=== PATIENT | male | born 1960 | race African-American/Black ===

== ENCOUNTER 2019-05-01 11:45 | Inpatient (IN) | payer OTHER ==
[2019-05-01 14:15] VITALS: BMI 24.1
--- NOTE | 2019-05-01 15:25 | HP ---
Addendum entered and electronically signed by Jyoti Kwan, RESIDENT 05/01/19 15: 47: Correction: eyes injected and mild icterus on physical exam. Original Note: CIWA Score Nausea/Vomitin-Int. Nausea w/Dry Heave Muscle Tremors: 1-None Visible, but Ava Anxiety: 3 Agitation: 1-Slight > Activity Paroxysmal Sweats: 2 Orientation: 0-Oriented Tacttile Disturbances: 0-None Auditory Disturbances: 0-None Visual Disturbances: 0-None Headache: 2-Mild CIWA-Ar Total Score: 13 - Admission Criteria [facility] Guidelines: Admission for Medically Managed Detox: Requires at least one of the followin. CIWA greater than 12 2. Seizures within the past 24 hours 3. Delirium tremens within the past 24 hours 4. Hallucinations within the past 24 hours 5. Acute intervention needed for co occurring medical disorder 6. Acute intervention needed for co occurring psychiatric disorder 7. Severe withdrawal that cannot be handled at a lower level of care (continued vomiting, continued diarrhea, abnormal vital signs) requiring intravenous medication and/or fluids 8. Admission ROS [facility] Allergies/Adverse Reactions: Allergies Allergy/AdvReac Type Severity Reaction Status Date / Time acetaminophen Allergy Mild Hives Verified 05/01/19 14:06 [From Darvocet-N] propoxyphene Allergy Mild Hives Verified 05/01/19 14:06 [From Darvocet-N] History of Present Illness: Patient is a 59yo M with a PMHx of HTN, Bipolar disorder, depression, anxiety, coming in for Alcohol detox. Says he will consider rehab after his detox. Drinking since 14 Drinks about a 6 pack a day. Drinks 1 pint of liquor every day. He had a couple of beers today-24 oz Also sniffs cocaine at least twice a week. Denies black outs. Had a couple of seizures last 6/7 years ago. Last detox in November in december of this year in [facility]. 10 cigs a day for 25 years. On disability. Lives in a detention. Exam Limitations: No Limitations - Ebola screening Have you traveled outside of the country in the last 21 days: No (N) Have you had contact with anyone from an Ebola affected area: No Do you have a fever: No - Review of Systems Constitutional: No Symptoms Reported EENT: reports: No Symptoms Reported Respiratory: reports: Cough, Shortness of Breath Cardiac: denies: Chest Pain, Edema, Palpitations : reports: No Symptoms Reported Musculoskeletal: reports: No Symptoms Reported Patient History - Smoking Cessation Smoking history: Current every day smoker Initiated information on smoking cessation: Yes 'Breaking Loose' booklet given: 05/01/19 - Substances abused Alcohol Substance route: Oral Frequency: Daily Amount used: 6 pack of beer (24oz) Age of first use: 14 Date of last use: 05/01/19 Cocaine Substance route: Smoking Frequency: 1-2 times per week Amount used: $300 Age of first use: 28 Date of last use: 04/30/19 Family Disease History - Family Disease History Family Disease History: Heart Disease: Mother, Other: Father (alzheimers) Admission Physical Exam [facility] - Vital Signs Vital Signs: Vital Signs - 24 hr 05/01/19 13:56 Temperature 97.4 F L Pulse Rate 91 H Respiratory 18 Rate Blood Pressure 125/84 - Physical General Appearance: Yes: Within Normal Limits HEENTM: Yes: Within Normal Limits, EOMI Respiratory: Yes: Within Normal Limits, Lungs Clear, No Respiratory Distress, No Accessory Muscle Use Cardiology: Yes: Regular Rhythm, Regular Rate Abdominal: Yes: Normal Bowel Sounds, Non Tender Extremities: Yes: Within Normal Limits - Diagnostic (1) Alcohol abuse Current Visit: Yes Status: Acute (2) Cocaine abuse Current Visit: Yes Status: Acute (3) Alcohol dependence Current Visit: Yes Status: Acute Cleared for Admission [facility] - Detox or Rehab [facility] Level of Care: Medically Managed Breathalyzer - Breathalyzer Breathalyzer: 0 Urine Drug Screen - Test Device Lot number: [id number] Expiration date: 02/13/21 - Control Is test valid?: Yes - Results Drug screen NEGATIVE: No Urine drug screen results: TYREL-Cocaine Inpatient Rehab Admission - Rehab Decision to Admit Inpatient rehab admission?: No
[2019-05-01] MEDS ORDERED: MAGNESIUM CITRATE 300 ML BOTTLE PO PRN (15:31)
[2019-05-01] MEDS ORDERED: chlordiazePOXIDE HCL 25 MG CAPSULE PO PRN (15:31)
[2019-05-01] MEDS ORDERED: MAG HYDROX/AL HYDROX/SIMETH 30 ML UNIT-DOSE CUP PO PRN (15:31)
[2019-05-01] MEDS ORDERED: MAGNESIUM HYDROX 2400MG/30ML ORAL SUSPENSION 30 ML CUP PO PRN (15:31)
[2019-05-01] MEDS ORDERED: BISMUTH SUBSALICYLATE 262 MG/15 ML BTL PO PRN (15:31)
[2019-05-01] MEDS ORDERED: hydrOXYzine PAMOATE 25 MG CAPSULE (FP) PO PRN (15:31)
[2019-05-01] MEDS ORDERED: MENTHOL/PHENOL 1 EACH UD MM PRN (15:31)
[2019-05-01] MEDS ORDERED: IBUPROFEN 400 MG TABLET (FP) PO PRN (15:31)
[2019-05-01] MEDS ORDERED: METHOCARBAMOL 500 MG TABLET PO PRN (15:31)
[2019-05-01] MEDS ORDERED: ACETAMINOPHEN 325 MG TABLET (FP) PO PRN ×2 (15:31)
--- NOTE | 2019-05-01 15:39 | PN ---
Teaching Attending Note Name of Resident: Jyoti Kwan ATTENDING PHYSICIAN STATEMENT I saw and evaluated the patient. I reviewed the resident's note and discussed the case with the resident. I agree with the resident's findings and plan as documented. SUBJECTIVE: this 59 years old male with alcohol and cocaine dependence seeking detox, bipolar disorder living in the [facility] OBJECTIVE: withdrawal signs and symptom Vital Signs Temperature 97.4 F L 05/01/19 13:56 Pulse Rate 91 H 05/01/19 13:56 Respiratory Rate 18 05/01/19 13:56 Blood Pressure 125/84 05/01/19 13:56 O2 Sat by Pulse Oximetry (%) ASSESSMENT AND PLAN: patient need inpatient detox from alcohol and cocaine,medically managed detox, librium regimen,psychiatric consultation, plan for rehab after detox
[2019-05-01] MEDS: chlordiazePOXIDE HCL 25 MG CAPSULE PO SCH ×2 (16:53→23:48)
[2019-05-01] MEDS: NICOTINE 21 MG/24 HOURS TOPICAL PATCH TD SCH (16:55)
[2019-05-01] MEDS: SELENIUM SULFIDE 2.5% LOTION 4 OZ. TP SCH (16:57)
[2019-05-01] MEDS ORDERED: LURASIDONE HCL 60 MG PO SCH (22:00)
[2019-05-01] MEDS ORDERED: LURASIDONE HCL 40 MG, LURASIDONE HCL 20 MG PO SCH (22:00)
[2019-05-01] MEDS: THIAMINE HCL 100 MG TABLET (FP) PO SCH (23:45)
[2019-05-01] MEDS: MIRTAZAPINE 30 MG TABLET (FP) PO SCH (23:45)
[2019-05-01] MEDS: LURASIDONE HCL 40 MG, LURASIDONE HCL 20 MG PO SCH (23:46)
[2019-05-02] MEDS: chlordiazePOXIDE HCL 25 MG CAPSULE PO SCH ×4 (07:14→22:53)
[2019-05-02 10:39] LABS: HEMATOCRIT 40.9 % (35.4-49); HEMOGLOBIN 13.3 GM/dL (11.7-16.9); MCH 29.3 pg (25.7-33.7); MCHC 32.6 g/dl (32.0-35.9); MEAN PLT VOLUME 7.4 fl (7.5-11.1); PLATELET COUNT 321 K/MM3 (134-434); RBC 4.54 M/mm3 (4.00-5.60); RDW 14.3 % (11.9-15.9); WHITE BLOOD COUNT 4.9 K/mm3 (4.0-10.0)
[2019-05-02 11:01] LABS: ALBUMIN 3.8 g/dl (3.4-5.0); BILIRUBIN,TOTAL 0.2 mg/dL (0.2-1); BLOOD UREA NITROGEN 16.8 mg/dL (7-18); CALCIUM 9.2 mg/dL (8.5-10.1); POTASSIUM 4.2 mmol/L (3.5-5.1); TOT PROT 6.8 g/dl (6.4-8.2)
[2019-05-02] MEDS: HYDROCHLOROTHIAZIDE 25 MG TABLET (FP) PO SCH (11:47)
[2019-05-02] MEDS: NICOTINE 21 MG/24 HOURS TOPICAL PATCH TD SCH (11:47)
[2019-05-02] MEDS: PRENATAL VITAMINS W/ FOLIC ACID TABLET (FP) PO SCH (11:47)
[2019-05-02] MEDS: amLODIPine BESYLATE 10 MG TABLET (FP) PO SCH (11:47)
[2019-05-02] MEDS: SELENIUM SULFIDE 2.5% LOTION 4 OZ. TP SCH (11:48)
[2019-05-02] MEDS: MIRTAZAPINE 30 MG TABLET (FP) PO SCH (11:48)
--- NOTE | 2019-05-02 11:53 | PN ---
[facility] CIWA - CIWA Score Nausea/Vomitin-No Nausea/No Vomiting Muscle Tremors: 2 Anxiety: 3 Agitation: 1-Slight > Activity Paroxysmal Sweats: 3 Orientation: 0-Oriented Tacttile Disturbances: 0-None Auditory Disturbances: 0-None Visual Disturbances: 0-None Headache: 2-Mild CIWA-Ar Total Score: 11 S Progress Note (SOAP) Subjective: c/o headache, sweats, anxiety, and interrupted sleep. Objective: 05/02/19 11:52 Vital Signs 05/02/19 05/02/19 07:07 09:39 Temperature 97 F L 97.1 F L Pulse Rate 65 85 Respiratory 18 16 Rate Blood Pressure 100/60 137/86 Lab Results WBC 4.9 K/mm3 (4.0-10.0) 05/02/19 07:30 RBC 4.54 M/mm3 (4.00-5.60) 05/02/19 07:30 Hgb 13.3 GM/dL (11.7-16.9) 05/02/19 07:30 Hct 40.9 % (35.4-49) 05/02/19 07:30 MCV 90.0 fl (80-96) 05/02/19 07:30 MCHC 32.6 g/dl (32.0-35.9) 05/02/19 07:30 RDW 14.3 % (11.9-15.9) 05/02/19 07:30 Plt Count 321 K/MM3 (134-434) 05/02/19 07:30 Sodium 141 mmol/L (136-145) 05/02/19 07:30 Potassium 4.2 mmol/L (3.5-5.1) 05/02/19 07:30 Chloride 105 mmol/L (98-107) 05/02/19 07:30 Carbon Dioxide 30 mmol/L (21-32) 05/02/19 07:30 Anion Gap 6 MMOL/L (8-16) L 05/02/19 07:30 BUN 16.8 mg/dL (7-18) 05/02/19 07:30 Creatinine 1.0 mg/dL (0.55-1.3) 05/02/19 07:30 Random Glucose 82 mg/dL (74-106) 05/02/19 07:30 Calcium 9.2 mg/dL (8.5-10.1) 05/02/19 07:30 Labs noted. Assessment: 05/02/19 11:52 AOX3, in no acute distress. Full ROM, ambulating in the unit. Withdrawal symptoms. Plan: continue detox.
--- NOTE | 2019-05-02 16:11 | CONSULT ---
[facility] Psychiatric Consult - Data Date of interview: 05/02/19 Admission source: [facility] Identifying data: Patient is approached for psychiatric evaluation. Mr Cm refuses. " I don't have psychistric problems. I don't need to talk to psychiatrists." Nursing staff is made aware.
[2019-05-02] MEDS: NICOTINE POLACRILEX 2 MG GUM BUC PRN (17:34)
[2019-05-02] MEDS: LURASIDONE HCL 40 MG, LURASIDONE HCL 20 MG PO SCH (22:47)
[2019-05-02] MEDS: THIAMINE HCL 100 MG TABLET (FP) PO SCH (22:47)
[2019-05-02] MEDS: MELATONIN 5 MG TABLETS PO PRN (22:48)
[2019-05-03] MEDS: chlordiazePOXIDE HCL 25 MG CAPSULE PO SCH ×4 (05:48→22:04)
[2019-05-03] MEDS: PRENATAL VITAMINS W/ FOLIC ACID TABLET (FP) PO SCH (10:06)
[2019-05-03] MEDS: amLODIPine BESYLATE 10 MG TABLET (FP) PO SCH (10:07)
[2019-05-03] MEDS: MIRTAZAPINE 30 MG TABLET (FP) PO SCH (10:07)
[2019-05-03] MEDS: HYDROCHLOROTHIAZIDE 25 MG TABLET (FP) PO SCH (10:07)
[2019-05-03] MEDS: NICOTINE 21 MG/24 HOURS TOPICAL PATCH TD SCH (10:08)
[2019-05-03] MEDS: SELENIUM SULFIDE 2.5% LOTION 4 OZ. TP SCH (11:25)
--- NOTE | 2019-05-03 13:24 | PN ---
[facility] CIWA - CIWA Score Nausea/Vomitin-No Nausea/No Vomiting Muscle Tremors: 3 Anxiety: 3 Agitation: 3 Paroxysmal Sweats: 3 Orientation: 0-Oriented Tacttile Disturbances: 0-None Auditory Disturbances: 0-None Visual Disturbances: 0-None Headache: 0-None Present CIWA-Ar Total Score: 12 [facility] Progress Note (SOAP) Subjective: sweats irritable agitation interrupted sleep Objective: 05/03/19 13:23 Vital Signs Temperature 98.1 F 05/03/19 09:55 Pulse Rate 85 05/03/19 09:55 Respiratory Rate 16 05/03/19 09:55 Blood Pressure 139/90 05/03/19 09:55 O2 Sat by Pulse Oximetry (%) Laboratory Tests 05/02/19 05/02/19 05/02/19 07:30 07:30 07:30 WBC 4.9 RBC 4.54 Hgb 13.3 Hct 40.9 MCV 90.0 MCH 29.3 MCHC 32.6 RDW 14.3 Plt Count 321 MPV 7.4 L Sodium 141 Potassium 4.2 Chloride 105 Carbon Dioxide 30 Anion Gap 6 L BUN 16.8 Creatinine 1.0 Est GFR (CKD-EPI)AfAm 93.73 Est GFR (CKD-EPI)NonAf 80.87 Random Glucose 82 Calcium 9.2 Total Bilirubin 0.2 AST 15 ALT 24 Alkaline Phosphatase 105 Total Protein 6.8 Albumin 3.8 RPR Titer Nonreactive HIV 1&2 Ag/Ab, 4th Gen HIV 1&2 Antibody Screen HIV P24 Antigen 05/02/19 05/02/19 07:30 09:00 WBC RBC Hgb Hct MCV MCH MCHC RDW Plt Count MPV Sodium Potassium Chloride Carbon Dioxide Anion Gap BUN Creatinine Est GFR (CKD-EPI)AfAm Est GFR (CKD-EPI)NonAf Random Glucose Calcium Total Bilirubin AST ALT Alkaline Phosphatase Total Protein Albumin RPR Titer HIV 1&2 Ag/Ab, 4th Gen Non reactive HIV 1&2 Antibody Screen Cancelled HIV P24 Antigen Cancelled labs noted aaox3 ambulating no acute distress Assessment: 05/03/19 13:24 withdrawal sx Plan: continue detox increase fluids
[2019-05-03] MEDS: NICOTINE POLACRILEX 2 MG GUM BUC PRN (18:52)
[2019-05-03] MEDS ORDERED: LURASIDONE HCL 40 MG TABLET PO ONE (21:30)
[2019-05-03] MEDS ORDERED: LURASIDONE HCL 20 MG TABLET PO ONE (21:30)
[2019-05-03] MEDS: THIAMINE HCL 100 MG TABLET (FP) PO SCH (22:04)
[2019-05-03] MEDS: LURASIDONE HCL 40 MG, LURASIDONE HCL 20 MG PO SCH (22:04)
[2019-05-03] MEDS: MELATONIN 5 MG TABLETS PO PRN (22:04)
[2019-05-04] MEDS ORDERED: chlordiazePOXIDE HCL 10 MG CAPSULE PO PRN
[2019-05-04] MEDS: chlordiazePOXIDE HCL 10 MG CAPSULE PO SCH ×4 (05:41→22:05)
[2019-05-04] MEDS: NICOTINE 21 MG/24 HOURS TOPICAL PATCH TD SCH (10:22)
[2019-05-04] MEDS: PRENATAL VITAMINS W/ FOLIC ACID TABLET (FP) PO SCH (10:22)
--- NOTE | 2019-05-04 10:50 | PN ---
S CIWA - CIWA Score Nausea/Vomitin-No Nausea/No Vomiting Muscle Tremors: 3 Anxiety: 2 Agitation: 2 Paroxysmal Sweats: 2 Orientation: 0-Oriented Tacttile Disturbances: 0-None Auditory Disturbances: 0-None Visual Disturbances: 0-None Headache: 0-None Present CIWA-Ar Total Score: 9 [facility] Progress Note (SOAP) Subjective: tired little sweats anxiety Objective: 05/04/19 10:50 Vital Signs Temperature 98.3 F 05/04/19 09:36 Pulse Rate 82 05/04/19 09:36 Respiratory Rate 18 05/04/19 09:36 Blood Pressure 115/54 L 05/04/19 09:36 O2 Sat by Pulse Oximetry (%) aaox3 ambulating no acute distress Assessment: 05/04/19 10:50 withdrawals Plan: continue detox increase fluids
[2019-05-04] MEDS: HYDROCHLOROTHIAZIDE 25 MG TABLET (FP) PO SCH (14:05)
[2019-05-04] MEDS: amLODIPine BESYLATE 10 MG TABLET (FP) PO SCH (14:05)
[2019-05-04] MEDS: NICOTINE POLACRILEX 2 MG GUM BUC PRN (14:06)
[2019-05-04] MEDS: SELENIUM SULFIDE 2.5% LOTION 4 OZ. TP SCH (14:06)
[2019-05-04] MEDS: MIRTAZAPINE 30 MG TABLET (FP) PO SCH ×2 (14:37→22:05)
[2019-05-04] MEDS: THIAMINE HCL 100 MG TABLET (FP) PO SCH (22:04)
[2019-05-04] MEDS: LURASIDONE HCL 40 MG, LURASIDONE HCL 20 MG PO SCH (22:04)
[2019-05-04] MEDS: MELATONIN 5 MG TABLETS PO PRN (22:06)
[2019-05-05] MEDS: chlordiazePOXIDE HCL 10 MG CAPSULE PO SCH ×2 (06:40→17:25)
[2019-05-05] MEDS: NICOTINE 21 MG/24 HOURS TOPICAL PATCH TD SCH (10:47)
[2019-05-05] MEDS: amLODIPine BESYLATE 10 MG TABLET (FP) PO SCH (10:47)
[2019-05-05] MEDS: PRENATAL VITAMINS W/ FOLIC ACID TABLET (FP) PO SCH (10:47)
[2019-05-05] MEDS: HYDROCHLOROTHIAZIDE 25 MG TABLET (FP) PO SCH (10:47)
[2019-05-05] MEDS: SELENIUM SULFIDE 2.5% LOTION 4 OZ. TP SCH (10:48)
--- NOTE | 2019-05-05 11:06 | PN ---
S CIWA - CIWA Score Nausea/Vomitin-No Nausea/No Vomiting Muscle Tremors: 2 Anxiety: 1-Mildly Anxious Agitation: 0-Normal Activity Paroxysmal Sweats: No Perspiration Orientation: 0-Oriented Tacttile Disturbances: 0-None Auditory Disturbances: 0-None Visual Disturbances: 0-None Headache: 0-None Present CIWA-Ar Total Score: 3 [facility] Progress Note (SOAP) Subjective: sleepy tired Objective: 05/05/19 11:05 Vital Signs Temperature 98.1 F 05/05/19 09:34 Pulse Rate 82 05/05/19 09:34 Respiratory Rate 18 05/05/19 09:34 Blood Pressure 119/76 05/05/19 09:34 O2 Sat by Pulse Oximetry (%) aaox3 lying down no acute distress Assessment: 05/05/19 11:05 mild withdrawals Plan: continue detox d/c in am
[2019-05-05] MEDS: MELATONIN 5 MG TABLETS PO PRN (22:06)
[2019-05-05] MEDS: THIAMINE HCL 100 MG TABLET (FP) PO SCH (22:07)
[2019-05-05] MEDS: LURASIDONE HCL 40 MG, LURASIDONE HCL 20 MG PO SCH (22:07)
[2019-05-05] MEDS: MIRTAZAPINE 30 MG TABLET (FP) PO SCH (22:07)
[2019-05-06] MEDS ORDERED: chlordiazePOXIDE HCL 10 MG CAPSULE PO ONE (05:00)
[2019-05-06 08:01] VITALS: BP 104/67; PULSE 65; TEMP 97.3
--- NOTE | 2019-05-06 09:09 | DS ---
[facility] Detox Discharge Summary Admission Date: 05/01/19 Discharge Date: 05/06/19 - History Present History: Alcohol Dependence - Physical Exam Results Vital Signs: Vital Signs Temperature 97.3 F L 05/06/19 08:00 Pulse Rate 65 05/06/19 08:00 Respiratory Rate 18 05/06/19 08:00 Blood Pressure 104/67 05/06/19 08:00 O2 Sat by Pulse Oximetry (%) Pertinent Admission [facility]am [facility] Laboratory Tests 05/02/19 05/02/19 05/02/19 07:30 07:30 07:30 WBC 4.9 RBC 4.54 Hgb 13.3 Hct 40.9 MCV 90.0 MCH 29.3 MCHC 32.6 RDW 14.3 Plt Count 321 MPV 7.4 L Sodium 141 Potassium 4.2 Chloride 105 Carbon Dioxide 30 Anion Gap 6 L BUN 16.8 Creatinine 1.0 Est GFR (CKD-EPI)AfAm 93.73 Est GFR (CKD-EPI)NonAf 80.87 Random Glucose 82 Calcium 9.2 Total Bilirubin 0.2 AST 15 ALT 24 Alkaline Phosphatase 105 Total Protein 6.8 Albumin 3.8 RPR Titer Nonreactive HIV 1&2 Ag/Ab, 4th Gen HIV 1&2 Antibody Screen HIV P24 Antigen 05/02/19 05/02/19 07:30 09:00 WBC RBC Hgb Hct MCV MCH MCHC RDW Plt Count MPV Sodium Potassium Chloride Carbon Dioxide Anion Gap BUN Creatinine Est GFR (CKD-EPI)AfAm Est GFR (CKD-EPI)NonAf Random Glucose Calcium Total Bilirubin AST ALT Alkaline Phosphatase Total Protein Albumin RPR Titer HIV 1&2 Ag/Ab, 4th Gen Non reactive HIV 1&2 Antibody Screen Cancelled HIV P24 Antigen Cancelled today pt is aaox3 ambulating no acute distress no s/s of withdrawals - Treatment Hospital Course: Detox Protocol Followed, Detoxed Safely, Responded well, Discharged Condition Good, Rehab Referral Accepted Patient has Accepted a Rehab Referral to: referred to [facility] - Medication Discharge Medications: Ambulatory Orders Amlodipine Besylate [Norvasc -] 10 mg PO DAILY 05/01/19 Hydrochlorothiazide [Hctz -] 25 mg PO DAILY 05/01/19 Lurasidone HCl [Latuda] 60 mg PO DAILY 05/01/19 Mirtazapine [Remeron -] 30 mg PO DAILY 05/01/19 Varenicline Tartrate [Chantix] 1 each PO DAILY 05/01/19 - Diagnosis (1) Alcohol dependence Current Visit: Yes Status: Chronic Qualifiers: Substance use status: uncomplicated Qualified Code(s): F10.20 - Alcohol dependence, uncomplicated (2) Cocaine abuse Current Visit: Yes Status: Chronic - AMA Did Patient Leave Against Medical Advice: No
== END 2019-05-06 09:13 | disposition home or self-care (01) | DRG 774 ==
LOC: YASAS 11:45 → Y6N 15:40
PROVIDERS: ADMIT Surgery; ATTEND Surgery
PROC: HZ2ZZZZ Detoxification Services for Substance Abuse Treatment (ICD-10-PCS; principal; 2019-05-01)
DX: F10.230 Alcohol dependence with withdrawal, uncomplicated (principal); F14.10 Cocaine abuse, uncomplicated; F17.210 Nicotine dependence, cigarettes, uncomplicated; I10 Essential (primary) hypertension; Z59.0 Homelessness; Z86.69 Personal history of other diseases of the nervous system and sense organs
CPT/HCPCS: 36415; 80053; 85027; 86480; 86593; 87389